=== PATIENT | male | born 1965 | race Caucasian/White ===

== ENCOUNTER 2020-03-26 07:58 | Emergency (ER) | payer OTHER ==
[~2020-03-26] VITALS: Ht 193 cm; Wt 104.3 kg
[2020-03-26] MEDS ORDERED: IBUPROFEN200 MG PO (08:16)
== END 2020-03-26 08:35 | disposition home or self-care (01) ==
LOC: ED 07:58
DX: S46.811A Strain of other muscles, fascia and tendons at shoulder and upper arm level, right arm, initial encounter (principal); X50.9XXA Other and unspecified overexertion or strenuous movements or postures, initial encounter; F17.200 Nicotine dependence, unspecified, uncomplicated
CPT/HCPCS: 99283